=== PATIENT | female | born 1965 | race African-American/Black ===

== ENCOUNTER 2017-01-14 04:32 | Emergency (ER) | payer OTHER ==
[2017-01-14] MEDS ORDERED: HYDROcodone/Acetaminophen 10/325 mg Tablet ONE (05:05)
== END 2017-01-14 05:17 | disposition home or self-care (01) ==
LOC: BURERS 04:32
DX: J20.9 Acute bronchitis, unspecified (principal)
CPT/HCPCS: 99283

== ENCOUNTER 2022-01-21 17:26 | Emergency (ER) | payer BC, OTHER ==
[2022-01-21] MEDS ORDERED: Nitroglycerin 0.4 MG TAB 1 EACH ONE (17:37)
[2022-01-21] MEDS ORDERED: Aspirin Chewable 81 MG TAB ONE (17:37)
[2022-01-21 18:02] LABS: #Basophils 0.1 thou/uL (0.0-0.2); #Eosinphils 0.2 thou/uL (0.0-0.7); #Lymphocytes 2.2 thou/uL (1.20-3.40); #Monocytes 0.4 thou/uL (0.11-0.59); #Neutrophils 3.6 thou/uL (1.40-6.50); %Basophils 1.7 % (0.0-1.0); %Eosinophils 3.6 % (0.0-10.0); %Lymphocytes 33.3 % (21.0-51.0); %Monocytes 6.6 % (0.0-10.0); %Neutrophils 54.9 % (42.0-75.0); Hemoglobin 11.1 g/dL (12.0-16.0); Mean Corpuscular HGB CONC 30.4 g/dL (32.0-36.0); Mean Corpuscular Hemoglobin 23.7 pg (27.0-31.0); Mean Corpuscular Volume 77.7 fl (78.0-98.0); Mean Platelet Volume 9.5 fL (7.4-10.4); Platelet Count 306 10x3/uL (130-400); RBC Distribution Width 17.8 % (11.5-14.5); White Blood Cell (WBC) Count 6.6 10x3/uL (4.8-10.8)
[2022-01-21 18:04] LABS: MDiff Complete? YES
[2022-01-21 18:18] LABS: ALT (SGPT) 15 U/L (8-55); AST (SGOT) 18 U/L (5-34); Albumin 3.9 g/dL (3.5-5.0); Alkaline Phosphatase 102 U/L (40-110); Anion Gap 12 mmol/L (10-20); BUN (Urea Nitrogen) 7 mg/dL (9.8-20.1); Bilirubin, Total 0.3 mg/dL (0.2-1.2); Calc. Creatinine Clearance 0 mL/min (70-130); Calcium 9.3 mg/dL (7.8-10.44); Carbon Dioxide 24 mmol/L (22-29); Chloride 106 mmol/L (98-107); Estimated GFR 105; Globulin 4.3 g/dL (2.4-3.5); Glucose 81 mg/dL (70-105); Lipase 15 U/L (8-78); Potassium 3.7 mmol/L (3.5-5.1); Protein, Total 8.2 g/dL (6.0-8.3); Sodium 138 mmol/L (136-145)
== END 2022-01-21 18:53 | disposition home or self-care (01) ==
LOC: BURERS 17:26
DX: R07.89 Other chest pain (principal)
CPT/HCPCS: 36415; 71045; 80053; 83690; 84484; 85025; 93005

== ENCOUNTER 2022-03-19 17:28 | Emergency (ER) | payer OTHER, BC ==
[2022-03-19] MEDS ORDERED: Ketorolac Tromethamine 60 MG/2 ML VIAL ONE (17:42)
== END 2022-03-19 18:14 | disposition home or self-care (01) ==
LOC: BURERS 17:28
DX: S29.019A Strain of muscle and tendon of unspecified wall of thorax, initial encounter (principal); S16.1XXA Strain of muscle, fascia and tendon at neck level, initial encounter; V89.2XXA Person injured in unspecified motor-vehicle accident, traffic, initial encounter
CPT/HCPCS: 96372; 99283; J1885

== ENCOUNTER 2024-04-03 20:15 | Emergency (ER) | payer OTHER, SELFPAY ==
[2024-04-03] MEDS ORDERED: Ibuprofen 800 MG TAB ONE (21:28)
== END 2024-04-03 21:41 | disposition home or self-care (01) ==
LOC: BURERS 20:15
DX: B34.9 Viral infection, unspecified (principal)
CPT/HCPCS: 71046; 87400; 87426; 93005